=== PATIENT | female | born 1950 | race Caucasian/White ===

== ENCOUNTER → 2017-08-16 | Day surgery (SDC) | payer OTHER ==
[~2017-08-16] VITALS: Ht 162.6 cm; Wt 62.6 kg
[2017-08-16 15:34] LABS: ABSOLUTE BASOPHIL COUNT 0 /CUMM (0.0-0.2); ABSOLUTE EOSINOPHIL COUNT 0.1 /CUMM (0.0-0.7); ABSOLUTE LYMPH COUNT 1.5 /CUMM (1.2-3.4); ABSOLUTE MONOCYTE COUNT 0.2 /CUMM (0.10-0.60); BASOPHIL % 0.4 % (0.0-2.0); EOSINOPHIL % 2.5 % (0-5); GRANULOCYTE % 61.3 % (42.2-75.2); MEAN CORPUSCULAR HGB 31.3 PG (27.0-31.0); MEAN CORPUSCULAR HGB CONC 33.8 G/DL (33.0-37.0); MEAN CORPUSCULAR VOLUME 92.6 FL (81.0-99.0); MEAN PLATELET VOLUME 9.3 FL (7.4-10.4); PLATELET COUNT 166 /CUMM (130-400); RBC DISTRIBUTION WIDTH 13.1 % (11.5-14.5); RED BLOOD CELL CT 3.58 /CUMM (4.20-5.40); WHITE BLOOD CELL COUNT 4.8 /CUMM (4.8-10.8)
[2017-08-16 15:39] LABS: HEMATOCRIT 33.1 % (37-47)
--- NOTE | 2017-08-16 15:54 | Operative Report ---
Operative/Inv Procedure Report Surgery Date: 08/16/17 Name of Procedure: cystocele repair with mesh and urethral sling, cystoscopy Pre-Operative Diagnosis: cystocele grade 3-4, occult stress incontinence Post-Operative Diagnosis: same Estimated Blood Loss: 500cc Surgeon/Pbx Inspector: Bryanna Avelar MD Anesthesia: laryngeal mask airway Implants: vaginal mesh Complications: none Condition: stable Operative Indication: cystocele grade 3-4 and occult stress incontinence Operative/Procedure Note Note: This an operative dictation on patient Carmel Mckenzie. She is a 67-year-old female with a history of the cystocele grade 3-4 that was bothersome with issues of emptying her bladder. She also had occult stress urinary incontinence and she was counseled on having this addressed at the time of the prolapse surgery. The risks and benefits and alternatives of the surgery for prolapse as well as incontinence was reviewed with the patient and her . All questions were answered. She signed a consent. Patient was identified in the holding area and brought to the operating room placed on the operating table in the supine position. Timeout was performed. IV antibiotics were infused. LMA anesthesia was initiated. She was then placed in the dorsolithotomy position and her genitalia region was shaved. She was prepped and draped in the standard sterile fashion. Lyn catheter was placed in the bladder was emptied. The Lyn was clamped and placed on the patient's abdomen. A Alpine retractor was placed with 6 stay hooks. 1% lidocaine was infiltrated into the anterior vaginal wall from the bladder neck to the cervix. The incision was made from the bladder neck to the cervix as well. The vaginal flaps are created taking care not to injure the bladder. The retropubic space was entered and the sacrospinous process was easily palpable and also the ligament on the patient's left and right side. The patient Be oh device was used to place 0 Prolene sutures into the sacrospinous ligaments on the right and left side as well as into the bladder neck fascia arcus tendineus on the right and left side. These Prolene sutures were then used to secure the Restorelle Mesh. They were suture with 2-0 Vicryl at the bladder neck and proximally at the cervix. The mesh was seen to be in good position once it was sutured down. Area was copiously irrigated with bacitracin irrigation. She did have quite brisk bleeding and Ariadne coagulant powder was used to help with this as was Surgicel later. The 2 anterior vaginal wall was closed with 2-0 Vicryl sutures in a running locking every third suture fashion. Methylene blue had been given 10 minutes earlier by anesthesia to check for the ureteral orifice patent patency. A cystoscopy was performed and the bladder was globally inspected. There were no abnormalities lesions or trabeculation and the bladder. The ureteral orifices were easily identified. E Deflux was seen emanating from both the left and right ureteral orifice. The right ureteral orifice did have to be cannulated with a sensor guidewire to stimulated but a gush of urine was easily seen. Attention was then turned to the sling portion of the case. The sling was an option of placement once the bladder was filled and coughing was stimulated with Cred maneuver. She did have urinary leakage and as result the sling was placed. 1% lidocaine with epinephrine was infiltrated into the anterior vaginal wall beneath the urethra. An incision was made and the vaginal flaps are created taking care not to injure the urethra. The Altis Sling kit was then used to place the sling. It was seen to be in a good horizontal flat orientation and was tightened with a DeBakey between the urethra and the sling. There was no mesh in the vaginal fornices. There was grossly irrigated with bacitracin irrigation. It was closed using 3-0 Vicryl running locking every third suture. Before closing the 30 tightening Prolene stitch was cut. A cystoscopy was performed again and there was no mesh in the bladder or the urethra the vaginal fornices. The sponge and needle count were correct at the end of the case. Patient tolerated the procedure well. This ended dictation on patient Carmel Mckenzie. Findings: No mesh in bladder, urethra or vaginal fornices. Bilateral ureteral reflux seen from both ureteral orifices. Discharge Disposition: PACU
== END ==
LOC: STS 01:41
PROVIDERS: Urology
DX: N39.3 Stress incontinence (female) (male) (principal); N81.10 Cystocele, unspecified
CPT/HCPCS: C1771; J0690; J1100; J2250; J2405; Q9968